=== PATIENT | female | born 1990 | race Caucasian/White ===

== ENCOUNTER 2016-11-19 23:49 | Emergency (ER) | payer OTHER ==
[2016-11-20 00:04] VITALS: TEMP 98
[2016-11-20] MEDS ORDERED: HYDROcodone 10MG/APAP 325MG 1 EA TAB PO ONE (00:28)
--- NOTE | 2016-11-20 00:28 | ED.PDOC ---
History of Present Illness - General Chief Complaint: Lower Extremity Injury Stated Complaint: pain right foot Time Seen by Provider: 11/20/16 00:25 Source: patient, RN notes reviewed, Vital Signs reviewed Exam Limitations: no limitations - History of Present Illness Initial Comments: Patient is a 26 y/o female whose right foot slipped off the last stair and her fott inverted and her body weight went down on it. 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 The pain is severe, sharp, and increases with movement of her foot. Timing/Duration: 1/2 hour Severity: severe Improving Factors: immobilization Worsening Factors: movement Associated Symptoms: denies symptoms Allergies/Adverse Reactions: Allergies Amoxicillin [From Augmentin] Allergy (Severe, Unverified 03/08/13 07:19) Clavulanic Acid [From Augmentin] Allergy (Severe, Unverified 03/08/13 07:19) Home Medications: Ambulatory Orders Clonazepam [Klonopin] 1 mg PO PRN PRN 11/20/16 Divalproex Sodium [Depakote Tab] 250 mg PO DAILY 11/20/16 Escitalopram [Lexapro] 10 mg PO DAILY 11/20/16 HYDROcodone 5MG/APAP 325MG [[place] 5/325] 1 ea PO PRN PRN 11/20/16 Meloxicam [Mobic] 15 mg PO DAILY 11/20/16 Review of Systems - Review of Systems Constitutional: States: no symptoms reported EENTM: States: no symptoms reported Respiratory: States: no symptoms reported Cardiology: States: no symptoms reported Gastrointestinal/Abdominal: States: no symptoms reported Genitourinary: States: no symptoms reported Musculoskeletal: States: back pain, joint pain Skin: States: no symptoms reported Neurological: States: no symptoms reported Endocrine: States: no symptoms reported Hematologic/Lymphatic: States: no symptoms reported All other Systems: Reviewed and Negative Past Medical History (General) - Patient Medical History Hx Seizures: No Hx Stroke: No Hx Dementia: No Hx Asthma: No Hx of COPD: No Hx Cardiac Disorders: No Hx Congestive Heart Failure: No Hx Pacemaker: No Hx Hypertension: No Hx Thyroid Disease: No Hx Diabetes: No Hx Gastroesophageal Reflux: No Hx Renal Disease: No Hx Cancer: No Hx of HIV: No Hx Hepatitis C: No Hx MRSA: No - Vaccination History Hx Tetanus, Diphtheria Vaccination: No Hx Influenza Vaccination: No Hx Pneumococcal Vaccination: No - Social History Hx Tobacco Use: Yes Hx Alcohol Use: No Hx Substance Use: No Hx Substance Use Treatment: No Hx Depression: Yes - Female History Patient is a Female of Child Bearing Age (10 -59 yrs old): Yes Patient : No Family Medical History - Family History Mother Family History: Unknown Physical Exam - Physical Exam General Appearance: Alert, Obvious distress - Mild distress Ears, Nose, Throat: hearing grossly normal Peripheral Pulses: dorsalis pedis,right: 1+ Extremity: swelling - lateral mid-foot, other - evaristo tenderness at tarsal/ metatarsal joint Neurologic: alert, normal mood/affect, oriented x 3 Skin Exam: normal color, warm/dry Progress - Results/Orders Results/Orders: 11/19/16 23:58 Temperature 98.0 F Pulse Rate [ 74 left arm] Respiratory 18 Rate Blood Pressure 113/64 [Right Arm] O2 Sat by Pulse 98 Oximetry - EKG/XRAY/CT XRAY: Right foot Xray Comments: Displaced Maya fracture of proximal 5th metatarsal Departure - Departure Clinical Impression: Fracture of fifth metatarsal bone of right foot Time of Disposition: 00:33 Disposition: Discharge to Home or Self Care Condition: Fair Departure Forms: ED Discharge - Pt. Copy, Patient Portal Self Enrollment Instructions: Foot Fracture, DI for Foot Fracture Diet: resume usual diet Activity: other - No weight-bearing on right foot Referrals: Inocente Damon MD [Primary Care Provider] - 1-2 Weeks Tej Garza MD [Active Staff] - 1-5 Days Home Medications: Ambulatory Orders Clonazepam [Klonopin] 1 mg PO PRN PRN 11/20/16 Divalproex Sodium [Depakote Tab] 250 mg PO DAILY 11/20/16 Escitalopram [Lexapro] 10 mg PO DAILY 11/20/16 HYDROcodone 5MG/APAP 325MG [[place] 5/325] 1 ea PO PRN PRN 11/20/16 Meloxicam [Mobic] 15 mg PO DAILY 11/20/16
[2016-11-20 01:01] VITALS: BP 116/71; O2SAT 99
--- NOTE | 2016-11-20 01:06 | RAD ---
EXAM DESCRIPTION: Foot, right 3 Views CLINICAL HISTORY: 26 years Female pain right foot s/p fall COMPARISON: None. TECHNIQUE: Three views of the right foot. FINDINGS: No acute fractures or dislocations are identified. No osseous destructive lesions. IMPRESSION: [No acute fracture is identified. 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
--- NOTE | 2016-11-20 01:15 | RAD ---
EXAM DESCRIPTION: Foot, right 3 Views CLINICAL HISTORY: 26 years Female pain right foot s/p fall COMPARISON: None. TECHNIQUE: Three views of the right foot. FINDINGS: No acute fractures or dislocations are identified. No osseous destructive lesions. IMPRESSION: [No acute fracture is identified. 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
== END 2016-11-20 01:01 | disposition home or self-care (01) ==
LOC: ER 23:49
DX: S92.351A Displaced fracture of fifth metatarsal bone, right foot, initial encounter for closed fracture (principal); Z88.3 Allergy status to other anti-infective agents; Z87.891 Personal history of nicotine dependence; W10.9XXA Fall (on) (from) unspecified stairs and steps, initial encounter

== ENCOUNTER 2017-02-25 19:37 | Emergency (ER) | payer OTHER ==
[2017-02-25 19:58] VITALS: BP 114/62; O2SAT 96
[2017-02-25] MEDS ORDERED: SULFA/TRIMETH 800/160 (DS) TAB 1 EA TAB PO ONE (20:01)
--- NOTE | 2017-02-25 20:19 | ED.PDOC ---
History of Present Illness - General Chief Complaint: Bite: Animal/Insect/Human Stated Complaint: insect bite Time Seen by Provider: 02/25/17 20:00 Source: patient, RN notes reviewed, Vital Signs reviewed Additional Information: Pt reports bee sting yesterday in left upper arm medial aspect (Pt took picture ) with localized reaction yesterday. Today, swelling and erythema has spread with associated localized numbness and pruritis. No reported fever. - History of Present Illness Timing/Duration: 24 hours Severity: moderate Improving Factors: nothing Worsening Factors: movement Associated Symptoms: denies symptoms - other than occasional numbness and tingling. Allergies/Adverse Reactions: Allergies Amoxicillin [From Augmentin] Allergy (Severe, Unverified 03/08/13 07:19) Clavulanic Acid [From Augmentin] Allergy (Severe, Unverified 03/08/13 07:19) Penicillins Allergy (Verified 02/25/17 19:51) Home Medications: Ambulatory Orders Divalproex Sodium [Depakote Tab] 500 mg PO BID 11/20/16 Escitalopram [Lexapro] 10 mg PO DAILY 11/20/16 Gabapentin 300 mg PO BID 02/25/17 Gabapentin [Neurontin] 600 mg PO BEDTIME 02/25/17 HYDROcodone 10MG/APAP 325MG [[place] 10/325] 1 ea PO Q8HR PRN 02/25/17 Ibuprofen 600 mg PO Q8HR PRN 02/25/17 Methocarbamol [Robaxin] 750 mg PO Q8HR PRN 02/25/17 Sulfa/Trimeth 800/160 (Ds) Tab [Bactrim DS Tab] 1 ea PO BID #14 tab 02/25/17 Review of Systems - Review of Systems Constitutional: States: no symptoms reported EENTM: States: no symptoms reported Respiratory: States: no symptoms reported Cardiology: States: no symptoms reported Gastrointestinal/Abdominal: States: no symptoms reported Genitourinary: States: no symptoms reported Musculoskeletal: States: see HPI Skin: States: see HPI Neurological: States: see HPI, numbness - in areas of inflammation Endocrine: States: no symptoms reported Hematologic/Lymphatic: States: no symptoms reported Past Medical History (General) - Patient Medical History Hx Seizures: No Hx Stroke: No Hx Dementia: No Hx Asthma: Yes Hx of COPD: No Hx Cardiac Disorders: No Hx Congestive Heart Failure: No Hx Pacemaker: No Hx Hypertension: No Hx Thyroid Disease: No Hx Diabetes: No Hx Gastroesophageal Reflux: No Hx Renal Disease: No Hx Cancer: No Hx of HIV: No Hx Hepatitis C: No Hx MRSA: No - Vaccination History Hx Tetanus, Diphtheria Vaccination: No Hx Influenza Vaccination: No Hx Pneumococcal Vaccination: Yes - Social History Hx Tobacco Use: Yes - E-cigarettes Hx Chewing Tobacco Use: No Hx Alcohol Use: No Hx Substance Use: No Hx Substance Use Treatment: No Hx Depression: No Feels Threatened In Home Enviroment: No Feels Threatened In a Relationship: No Hx Physical Abuse: No Hx Emotional Abuse: No Hx Suspected Abuse: No - Female History Patient is a Female of Child Bearing Age (10 -59 yrs old): Yes Patient : No Family Medical History - Family History Mother Family History: Unknown Physical Exam - Physical Exam General Appearance: Alert, Comfortable, No apparent distress - at rest, Well Developed, Well Groomed, Well Hydrated, Well Nourished Eye Exam: bilateral normal Ears, Nose, Throat: hearing grossly normal, normal ENT inspection, normal pharynx Neck: non-tender, full range of motion, supple, normal inspection Respiratory: no respiratory distress, no accessory muscle use Cardiovascular/Chest: normal peripheral pulses, regular rate, rhythm Peripheral Pulses: radial,left: 2+ Gastrointestinal/Abdominal: non tender, soft Back Exam: normal inspection Extremity: normal range of motion, swelling - mild to moderate around site of bee sting 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 No streaking erythema or drainage Progress - Progress Progress: 02/25/17 20:55 Signs and symptoms consistent with localized reaction to bee sting with accompanying early cellulitis. Will discharge to home with Rx for Bactrim and strict return precautions. Departure - Departure Clinical Impression: Left arm cellulitis Time of Disposition: 20:42 Disposition: Discharge to Home or Self Care Condition: Fair Departure Forms: ED Discharge - Pt. Copy, Patient Portal Self Enrollment Instructions: DI for Cellulitis -- Adult, DI for Insect Bites and Stings Referrals: Inocente Damon MD [Primary Care Provider] - 1-2 Weeks Prescriptions: Sulfa/Trimeth 800/160 (Ds) Tab [Bactrim DS Tab] 1 ea PO BID #14 tab Home Medications: Ambulatory Orders Divalproex Sodium [Depakote Tab] 500 mg PO BID 11/20/16 Escitalopram [Lexapro] 10 mg PO DAILY 11/20/16 Gabapentin 300 mg PO BID 02/25/17 Gabapentin [Neurontin] 600 mg PO BEDTIME 02/25/17 HYDROcodone 10MG/APAP 325MG [[place] 10/325] 1 ea PO Q8HR PRN 02/25/17 Ibuprofen 600 mg PO Q8HR PRN 02/25/17 Methocarbamol [Robaxin] 750 mg PO Q8HR PRN 02/25/17 Sulfa/Trimeth 800/160 (Ds) Tab [Bactrim DS Tab] 1 ea PO BID #14 tab 02/25/17 Additional Instructions: Ice to the left arm and elevate at least 3 times a day. Return to ER if condition worsens. Take full 10 day course of antibiotics. I recommend a reassessment in 24 to 48 hours.
[2017-02-25] MEDS ORDERED: SULFA/TRIMETH TAB 800/160 (ER) 1 EA TAB PO SCH (21:00)
== END 2017-02-25 20:38 | disposition home or self-care (01) ==
LOC: ER 19:37
DX: L03.114 Cellulitis of left upper limb (principal); F17.210 Nicotine dependence, cigarettes, uncomplicated; Z88.3 Allergy status to other anti-infective agents; Z88.0 Allergy status to penicillin; Z88.8 Allergy status to other drugs, medicaments and biological substances; Z79.899 Other long term (current) drug therapy

== ENCOUNTER 2017-05-16 10:50 | Emergency (ER) | payer OTHER ==
[2017-05-16 11:16] VITALS: BP 97/62; TEMP 98.8; O2SAT 69
--- NOTE | 2017-05-16 11:36 | ED.PDOC ---
History of Present Illness - General Chief Complaint: ENT Problem Stated Complaint: decreased hearing left ear Time Seen by Provider: 05/16/17 11:21 Source: patient Exam Limitations: no limitations - History of Present Illness Initial Comments: Patient complains of loss of hearing to her left ear for 36 hours. She said it was sudden onset and that the left side of her face felt numb. Symptoms have not worsened but they have not improved either. No previous episodes. She said she had a "silent seizure" when she was about 9 years ago. No other symptoms. Timing/Duration: other - 36 hours Severity: moderate Improving Factors: nothing Worsening Factors: nothing Associated Symptoms: denies symptoms Allergies/Adverse Reactions: Allergies Amoxicillin [From Augmentin] Allergy (Severe, Verified 05/16/17 11:16) Clavulanic Acid [From Augmentin] Allergy (Severe, Verified 05/16/17 11:16) Penicillins Allergy (Verified 05/16/17 11:16) Home Medications: Ambulatory Orders Divalproex Sodium [Depakote Tab] 500 mg PO BID 11/20/16 Escitalopram [Lexapro] 10 mg PO DAILY 11/20/16 Gabapentin 300 mg PO BID 02/25/17 Gabapentin [Neurontin] 600 mg PO BEDTIME 02/25/17 HYDROcodone 10MG/APAP 325MG [[place] 10/325] 1 ea PO Q8HR PRN 02/25/17 Ibuprofen 600 mg PO Q8HR PRN 02/25/17 Methocarbamol [Robaxin] 750 mg PO Q8HR PRN 02/25/17 Sulfa/Trimeth 800/160 (Ds) Tab [Bactrim DS Tab] 1 ea PO BID #14 tab 02/25/17 Review of Systems - Review of Systems Constitutional: States: no symptoms reported EENTM: States: see HPI Respiratory: States: no symptoms reported Cardiology: States: no symptoms reported Gastrointestinal/Abdominal: States: no symptoms reported Genitourinary: States: no symptoms reported Musculoskeletal: States: no symptoms reported Skin: States: no symptoms reported Neurological: States: no symptoms reported Endocrine: States: no symptoms reported Hematologic/Lymphatic: States: no symptoms reported Past Medical History (General) - Patient Medical History Hx Seizures: No Hx Stroke: No Hx Dementia: No Hx Asthma: Yes Hx of COPD: No Hx Cardiac Disorders: No Hx Congestive Heart Failure: No Hx Pacemaker: No Hx Hypertension: No Hx Thyroid Disease: No Hx Diabetes: No Hx Gastroesophageal Reflux: No Hx Renal Disease: No Hx Cancer: No Hx of HIV: No Hx Hepatitis C: No Hx MRSA: No - Vaccination History Hx Tetanus, Diphtheria Vaccination: No Hx Influenza Vaccination: No Hx Pneumococcal Vaccination: Yes - Social History Hx Tobacco Use: Yes - E-cigarettes Hx Chewing Tobacco Use: No Hx Alcohol Use: No Hx Substance Use: No Hx Substance Use Treatment: No Hx Depression: No Hx Physical Abuse: No Hx Emotional Abuse: No Hx Suspected Abuse: No - Activities of Daily Living Hospice Agency (if applicable):: None - Female History Patient is a Female of Child Bearing Age (10 -59 yrs old): Yes Patient : No Family Medical History - Family History Mother Family History: Unknown Physical Exam - Physical Exam General Appearance: Alert Eye Exam: bilateral normal Ears, Nose, Throat: other - TMs clear bilaterally. No cerumen impaction. TMs intact and not bulging. Patient leans the right side of her head towards [facility]. Neck: non-tender, full range of motion, supple Respiratory: lungs clear Cardiovascular/Chest: regular rate, rhythm Neurologic: other - Maldonado test lateralizes to the right ear. Rinne's test shows bone>air conduction on the left but air> bone conduction on the right. Departure - Departure Clinical Impression: Hearing loss in left ear Disposition: Discharge to Home or Self Care Condition: Good Departure Forms: ED Discharge - Pt. Copy, Patient Portal Self Enrollment Diet: regular diet Activity: increase activity as tolerated Referrals: Inocente Damon MD [Primary Care Provider] - 1-2 Weeks Home Medications: Ambulatory Orders Divalproex Sodium [Depakote Tab] 500 mg PO BID 11/20/16 Escitalopram [Lexapro] 10 mg PO DAILY 11/20/16 Gabapentin 300 mg PO BID 02/25/17 Gabapentin [Neurontin] 600 mg PO BEDTIME 02/25/17 HYDROcodone 10MG/APAP 325MG [[place] 10/325] 1 ea PO Q8HR PRN 02/25/17 Ibuprofen 600 mg PO Q8HR PRN 02/25/17 Methocarbamol [Robaxin] 750 mg PO Q8HR PRN 02/25/17 Sulfa/Trimeth 800/160 (Ds) Tab [Bactrim DS Tab] 1 ea PO BID #14 tab 02/25/17 Additional Instructions: Follow up with your primary doctor this week and arrange for an ENT doctor's appointment.
== END 2017-05-16 11:54 | disposition home or self-care (01) ==
LOC: ER 10:50
DX: H91.92 Unspecified hearing loss, left ear (principal); F17.210 Nicotine dependence, cigarettes, uncomplicated; Z88.0 Allergy status to penicillin; Z88.3 Allergy status to other anti-infective agents

== ENCOUNTER 2017-08-14 12:48 | Emergency (ER) | payer SELFPAY ==
[2017-08-14] MEDS ORDERED: ONDANSETRON INJ 4 MG/2 ML VIAL IV ONE (13:28)
[2017-08-14] MEDS ORDERED: SODIUM CHLORIDE 0.9% 1000ML 1,000 ML IVS ONE (13:28)
--- NOTE | 2017-08-14 13:31 | ED.PDOC ---
History of Present Illness - General Chief Complaint: General Stated Complaint: leg & arm pain, diarrhea, nausea & SOB Time Seen by Provider: 08/14/17 12:53 Source: patient, RN notes reviewed, Vital Signs reviewed Exam Limitations: no limitations - History of Present Illness Initial Comments: Patient comes to ER with numerous complaints. Reports her legs started hurting ( burning) last night. Started with diarrhea about 3am. Now c/o arms also hurting , stomach burning and nausea. + chills. No fever. Timing/Duration: 24 hours Severity: moderate Improving Factors: nothing Worsening Factors: nothing Associated Symptoms: fever/chills, malaise, nausea/vomiting, shortness of breath , other - myalgia Allergies/Adverse Reactions: Allergies Amoxicillin [From Augmentin] Allergy (Severe, Verified 05/16/17 11:16) Clavulanic Acid [From Augmentin] Allergy (Severe, Verified 05/16/17 11:16) Penicillins Allergy (Verified 05/16/17 11:16) Pseudoephedrine [From Sudafed] Allergy (Verified 08/14/17 14:01) Quetiapine [From Seroquel] Allergy (Verified 08/14/17 14:01) Home Medications: Ambulatory Orders Divalproex Sodium [Depakote Tab] 500 mg PO BID 11/20/16 Escitalopram [Lexapro] 10 mg PO DAILY 11/20/16 Gabapentin 300 mg PO BID 02/25/17 Gabapentin [Neurontin] 600 mg PO BEDTIME 02/25/17 HYDROcodone 10MG/APAP 325MG [[place] 10/325] 1 ea PO Q8HR PRN 02/25/17 Ibuprofen 600 mg PO Q8HR PRN 02/25/17 Methocarbamol [Robaxin] 750 mg PO Q8HR PRN 02/25/17 Sulfa/Trimeth 800/160 (Ds) Tab [Bactrim DS Tab] 1 ea PO BID #14 tab 02/25/17 Ondansetron [Zofran Odt] 4 mg PO Q6HR PRN #15 tab 08/14/17 Review of Systems - Review of Systems Constitutional: States: chills, malaise. Denies: fever EENTM: States: no symptoms reported Respiratory: States: short of breath. Denies: cough Cardiology: States: no symptoms reported Gastrointestinal/Abdominal: States: see HPI, diarrhea, nausea. Denies: vomiting Genitourinary: States: no symptoms reported Musculoskeletal: States: see HPI, muscle pain Skin: States: no symptoms reported Neurological: States: headache All other Systems: No Change from Baseline Past Medical History (General) - Patient Medical History Hx Seizures: No Hx Stroke: No Hx Dementia: No Hx Asthma: Yes Hx of COPD: No Hx Cardiac Disorders: No Hx Congestive Heart Failure: No Hx Pacemaker: No Hx Hypertension: No Hx Thyroid Disease: No Hx Diabetes: No Hx Gastroesophageal Reflux: No Hx Renal Disease: No Hx Cancer: No Hx of HIV: No Hx Hepatitis C: No Hx MRSA: No - Vaccination History Hx Tetanus, Diphtheria Vaccination: No Hx Influenza Vaccination: No Hx Pneumococcal Vaccination: Yes - Social History Hx Tobacco Use: Yes - E-cigarettes Hx Chewing Tobacco Use: No Hx Alcohol Use: No Hx Substance Use: No Hx Substance Use Treatment: No Hx Depression: No Hx Physical Abuse: No Hx Emotional Abuse: No Hx Suspected Abuse: No - Female History Patient : No Family Medical History - Family History Mother Family History: Unknown Physical Exam - Physical Exam General Appearance: Alert, No apparent distress, Ill Appearing, Well Developed, Well Groomed, Well Hydrated, Well Nourished Ears, Nose, Throat: hearing grossly normal Neck: non-tender, full range of motion, supple, normal inspection Respiratory: lungs clear, normal breath sounds, no respiratory distress, no accessory muscle use Cardiovascular/Chest: normal peripheral pulses, regular rate, rhythm, no gallop , no murmur Peripheral Pulses: radial,right: 2+, radial,left: 2+ Gastrointestinal/Abdominal: normal bowel sounds, soft, no organomegaly, no pulsatile mass, tenderness - Mild LUQ tenderness w/o guarding or rebound Extremity: normal inspection Neurologic: alert, normal mood/affect, oriented x 3 Skin Exam: normal color, warm/dry Comments: Vital Signs 08/14/17 08/14/17 12:52 14:08 Temperature 98.2 F Pulse Rate [ 75 64 left brachial] Respiratory 16 16 Rate Blood Pressure 96/77 98/67 [left brachial] O2 Sat by Pulse 95 96 Oximetry Progress - Progress Progress: 08/14/17 14:51 Patient is doing better after Zofran and fluids. Labs are benign Will d/c home with Rx for Zofran - Results/Orders Results/Orders: Laboratory Tests 08/14/17 08/14/17 08/14/17 13:53 13:53 13:53 WBC 5.6 RBC 4.41 Hgb 13.2 Hct 39.2 MCV 88.9 MCH 29.9 MCHC 33.8 RDW 12.7 Plt Count 289 MPV 8.6 Absolute Neuts (auto) 3.30 Absolute Lymphs (auto) 1.60 Absolute Monos (auto) 0.40 Absolute Eos (auto) 0.20 Absolute Basos (auto) 0.10 Neutrophils % 58.8 Lymphocytes % 29.4 Monocytes % 7.2 Eosinophils % 3.6 Basophils % 1.0 Sodium 137 Potassium 3.5 L Chloride 103 Carbon Dioxide 27 Anion Gap 10.5 L BUN 16 Creatinine 0.60 BUN/Creatinine Ratio 26.7 H Random Glucose 75 Serum Osmolality 273.7 L Calcium 9.8 Total Bilirubin 0.5 AST 34 ALT 44 Alkaline Phosphatase 57 Serum Total Protein 8.1 Albumin 4.5 Globulin 3.6 H Albumin/Globulin Ratio 1.3 Urine Color Yellow Urine Appearance Clear Urine pH 6.0 Ur Specific [place] 1.025 Urine Protein Negative Urine Glucose (UA) Negative Urine Ketones Negative Urine Blood Negative Urine Nitrite Negative Urine Bilirubin Negative Urine Urobilinogen 0.2 Ur Leukocyte Esterase Trace H Urine RBC 0 Urine WBC 3-5 H Ur Epithelial Cells 10-20 Urine Bacteria 0 Departure - Departure Clinical Impression: Gastroenteritis and colitis, viral Time of Disposition: 14:52 Disposition: Discharge to Home or Self Care Condition: Good Departure Forms: ED Discharge - Pt. Copy, Patient Portal Self Enrollment, Work Release Form Instructions: DI for Viral Gastroenteritis -- Adult Diet: resume usual diet Activity: increase activity as tolerated Referrals: Inocente Damon MD [Primary Care Provider] - 1-2 Weeks Prescriptions: Ondansetron [Zofran Odt] 4 mg PO Q6HR PRN #15 tab PRN Reason: Nausea/Vomiting Home Medications: Ambulatory Orders Divalproex Sodium [Depakote Tab] 500 mg PO BID 11/20/16 Escitalopram [Lexapro] 10 mg PO DAILY 11/20/16 Gabapentin 300 mg PO BID 02/25/17 Gabapentin [Neurontin] 600 mg PO BEDTIME 02/25/17 HYDROcodone 10MG/APAP 325MG [[place] 10/325] 1 ea PO Q8HR PRN 02/25/17 Ibuprofen 600 mg PO Q8HR PRN 02/25/17 Methocarbamol [Robaxin] 750 mg PO Q8HR PRN 02/25/17 Sulfa/Trimeth 800/160 (Ds) Tab [Bactrim DS Tab] 1 ea PO BID #14 tab 02/25/17 Ondansetron [Zofran Odt] 4 mg PO Q6HR PRN #15 tab 08/14/17
[2017-08-14 14:00] VITALS: TEMP 98.2
[2017-08-14 14:09] VITALS: O2SAT 96
[2017-08-14 15:16] VITALS: BP 93/53
== END 2017-08-14 15:16 | disposition home or self-care (01) ==
LOC: ER 12:48
DX: A08.4 Viral intestinal infection, unspecified (principal); F17.210 Nicotine dependence, cigarettes, uncomplicated; J45.909 Unspecified asthma, uncomplicated; Z79.899 Other long term (current) drug therapy; Z88.0 Allergy status to penicillin; Z88.8 Allergy status to other drugs, medicaments and biological substances
CPT/HCPCS: 36415; 80053; 81001; 85025; J2405; J7030

== ENCOUNTER 2018-02-18 21:51 | Emergency (ER) | payer OTHER ==
[2018-02-18 22:12] VITALS: O2SAT 97
[2018-02-18] MEDS ORDERED: KETOROLAC TROMETHAMINE INJ 60 MG/2 ML VIAL IM ONE (22:14)
--- NOTE | 2018-02-18 22:17 | ED.PDOC ---
History of Present Illness - General Chief Complaint: Lower Extremity Injury Stated Complaint: rt thigh pain Time Seen by Provider: 02/18/18 22:14 Source: patient Exam Limitations: no limitations - History of Present Illness Initial Comments: patient comes in today for right quadricep pain. Patient was walking at the leg stepped on a wet rock and had her leg slipped out from beneath her. She spread her legs but did not actually fall but felt a sudden pull and severe pain to the right quadricep. She was able to ambulate afterwards and had no other injury sustained. However, she states the pain is severe and she just is having sharp shooting pains in that muscle. She has not had injury to this area before. Occurred: this afternoon Pain - Lower Extremity: severe: Right Thigh/Hip Method of Injury: twisted Improving Factors: nothing Worsening Factors: movement Allergies/Adverse Reactions: Allergies Amoxicillin [From Augmentin] Allergy (Severe, Verified 05/16/17 11:16) Clavulanic Acid [From Augmentin] Allergy (Severe, Verified 05/16/17 11:16) Penicillins Allergy (Verified 05/16/17 11:16) Pseudoephedrine [From Sudafed] Allergy (Verified 08/14/17 14:01) Quetiapine [From Seroquel] Allergy (Verified 08/14/17 14:01) Home Medications: Ambulatory Orders Divalproex Sodium [Depakote Tab] 500 mg PO BID 11/20/16 Escitalopram [Lexapro] 20 mg PO DAILY 11/20/16 Gabapentin [Neurontin] 600 mg PO TID 02/25/17 HYDROcodone 10MG/APAP 325MG [[place] 10/325] 1 ea PO Q8HR PRN 02/25/17 Carisoprodol [Soma] 350 mg PO Q8H 08/14/17 Ibuprofen 800 mg PO TID 3 Days #10 tab 02/18/18 Review of Systems - Review of Systems Constitutional: Denies: chills, fever EENTM: States: no symptoms reported Respiratory: States: no symptoms reported Cardiology: States: no symptoms reported Gastrointestinal/Abdominal: States: no symptoms reported Genitourinary: States: no symptoms reported Past Medical History (General) - Patient Medical History Hx Seizures: No Hx Stroke: No Hx Dementia: No Hx Asthma: Yes Hx of COPD: No Hx Cardiac Disorders: No Hx Congestive Heart Failure: No Hx Pacemaker: No Hx Hypertension: No Hx Thyroid Disease: No Hx Diabetes: No Hx Gastroesophageal Reflux: No Hx Renal Disease: No Hx Cancer: No Hx of HIV: No Hx Hepatitis C: No Hx MRSA: No - Vaccination History Hx Tetanus, Diphtheria Vaccination: No Hx Influenza Vaccination: No Hx Pneumococcal Vaccination: Yes - Social History Hx Tobacco Use: Yes - E-cigarettes Hx Chewing Tobacco Use: No Hx Alcohol Use: No Hx Substance Use: No Hx Substance Use Treatment: No Hx Depression: No Hx Physical Abuse: No Hx Emotional Abuse: No Hx Suspected Abuse: No - Female History Patient is a Female of Child Bearing Age (10 -59 yrs old): Yes Patient : No Family Medical History - Family History Mother Family History: Unknown Physical Exam - Physical Exam General Appearance: Anxious Eyes, Ears, Nose, Throat: PERRL/EOMI Cardiovascular/Respiratory: regular rate, rhythm, no M/R/G, normal peripheral pulses, no JVD, normal breath sounds, no respiratory distress Gastrointestinal/Abdominal: non-tender Thigh/Hip: normal inspection, other - patient has tears to palpation to the middle portion of the quadricep with some soft tissue tenderness and swelling without erythema or gross deformities. Her knee is midline and there is no tears or palpations in the lower extremity or foot. She does have motor is 5 over 5 normal DTRs normal sensation and good distal pulse. Progress - Progress Progress: 02/18/18 22:18 patient appears to have suffered a quadricep strain or partial tear. There is no gross deformities and odor is intact. [place] bandage over the area with an ice pack and Toradol shot given. Ibuprofen 800 mg by mouth twice a day for the next 3 days prescribed and slowly ambulate as able. Follow up on Monday with her PCP in clinic. Departure - Departure Clinical Impression: Quadriceps strain Qualifiers: Encounter type: initial encounter Laterality: right Qualified Code(s): S76.111A - Strain of right quadriceps muscle, fascia and tendon, initial encounter Disposition: Discharge to Home or Self Care Condition: Fair Departure Forms: ED Discharge - Pt. Copy, Patient Portal Self Enrollment Diet: regular diet Activity: increase activity as tolerated Referrals: Inocente Damon MD [Primary Care Provider] - 1-2 Weeks Home Medications: Ambulatory Orders Divalproex Sodium [Depakote Tab] 500 mg PO BID 11/20/16 Escitalopram [Lexapro] 20 mg PO DAILY 11/20/16 Gabapentin [Neurontin] 600 mg PO TID 02/25/17 HYDROcodone 10MG/APAP 325MG [[place] ] 1 ea PO Q8HR PRN 02/25/17 Carisoprodol [Soma] 350 mg PO Q8H 08/14/17 Ibuprofen 800 mg PO TID 3 Days #10 tab 02/18/18 Additional Instructions: rest and ice to the area over the next couple of days. Follow-up in the clinic on she states her reexamined. Ibuprofen 800 mg 3 times a day until follow-up with PCP.
[2018-02-18 23:01] VITALS: BP 102/64; TEMP 98.2
== END 2018-02-18 23:01 | disposition home or self-care (01) ==
LOC: ER 21:51
DX: S76.111A Strain of right quadriceps muscle, fascia and tendon, initial encounter (principal); J45.909 Unspecified asthma, uncomplicated; F17.290 Nicotine dependence, other tobacco product, uncomplicated; W18.41XA Slipping, tripping and stumbling without falling due to stepping on object, initial encounter; Y92.828 Other wilderness area as the place of occurrence of the external cause

== ENCOUNTER 2018-02-22 22:37 | Emergency (ER) | payer OTHER ==
--- NOTE | 2018-02-22 23:43 | ED.PDOC ---
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 Cough Quality/Degree: dry cough Improving Factors: nothing Worsening Factors: nothing Associated Symptoms: shortness of breath Allergies/Adverse Reactions: Allergies Amoxicillin [From Augmentin] Allergy (Severe, Verified 02/22/18 23:22) Clavulanic Acid [From Augmentin] Allergy (Severe, Verified 02/22/18 23:22) Penicillins Allergy (Verified 02/22/18 23:22) Pseudoephedrine [From Sudafed] Allergy (Verified 02/22/18 23:22) Quetiapine [From Seroquel] Allergy (Verified 02/22/18 23:22) Home Medications: Ambulatory Orders Divalproex Sodium [Depakote Tab] 500 mg PO BID MDD 1000 11/20/16 Escitalopram [Lexapro] 20 mg PO DAILY 11/20/16 Gabapentin [Neurontin] 600 mg PO TID 02/25/17 HYDROcodone 10MG/APAP 325MG [[place] 10/325] 1 ea PO Q8HR PRN 02/25/17 Carisoprodol [Soma] 350 mg PO Q8H 08/14/17 Ibuprofen 800 mg PO TID 02/22/18 Albuterol Inhaler [Ventolin Hfa Inhaler] 2 puff INH Q4HR PRN #1 inh 02/23/18 Benzonatate Perles [Tessalon Perles] 100 mg PO TID PRN #15 cap 02/23/18 Prednisone 10 mg PO DAILY #5 prisca 02/23/18 Review of Systems - Review of Systems Constitutional: Denies: chills, fever EENTM: States: no symptoms reported Respiratory: States: 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, 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 of 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, 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 Cardiology: Denies: chest pain, palpitations Gastrointestinal/Abdominal: States: no symptoms reported Genitourinary: States: no symptoms reported Musculoskeletal: Denies: back pain, neck pain Skin: States: no symptoms reported Neurological: States: no symptoms reported Endocrine: States: no symptoms reported Hematologic/Lymphatic: States: no symptoms reported Past Medical History (General) - Patient Medical History Hx Seizures: No Hx Stroke: No Hx Dementia: No Hx Asthma: Yes Hx of COPD: No Hx Cardiac Disorders: No Hx Congestive Heart Failure: No Hx Pacemaker: No Hx Hypertension: No Hx Thyroid Disease: No Hx Diabetes: No Hx Gastroesophageal Reflux: Yes Hx Renal Disease: No Hx Cancer: No Hx of HIV: No Hx Hepatitis C: No Hx MRSA: No Surgical History: other - Vaccination History Hx Tetanus, Diphtheria Vaccination: No Hx Influenza Vaccination: No Hx Pneumococcal Vaccination: No Immunizations Up to Date: No - Social History Hx Tobacco Use: Yes Years Tobacco Use: 13 Cigarettes Packs Per Day: 6 Hx Chewing Tobacco Use: No Hx Alcohol Use: No Hx Substance Use: No Hx Substance Use Treatment: No Hx Depression: Yes - Bi-Polar Feels Threatened In Home Enviroment: No Feels Threatened In a Relationship: No Hx Physical Abuse: No Hx Emotional Abuse: No Hx Suspected Abuse: No - Activities of Daily Living Hospice Agency (if applicable):: None - Female History Patient is a Female of Child Bearing Age (10 -59 yrs old): Yes Hx Last Menstrual Period: 02/22/18 Patient : No Family Medical History - Family History Mother Family History: Unknown Physical Exam - Physical Exam General Appearance: Alert, No apparent distress Eye Exam: bilateral normal ENT Exam: normal ENT inspection, hearing grossly normal, TMs normal, pharynx normal Neck: non-tender, full range of motion, supple Respiratory: lungs clear, normal breath sounds, no respiratory distress Cardiovascular/Chest: regular rate, rhythm, no murmur Gastrointestinal/Abdominal: normal bowel sounds, non tender, soft, no organomegaly Extremity: normal range of motion, non-tender Neurologic: alert, normal mood/affect Skin Exam: normal color, warm/dry Lymphatic: no adenopathy Progress - EKG/XRAY/CT XRAY: chest - ESSENCE Departure - Departure Clinical Impression: Bronchitis Time of Disposition: 00:10 Disposition: Discharge to Home or Self Care Condition: Good Departure Forms: ED Discharge - Pt. Copy, Patient Portal Self Enrollment Instructions: Acute Bronchitis Referrals: Inocente Damon MD [Primary Care Provider] - 1-2 Weeks Prescriptions: Albuterol Inhaler [Ventolin Hfa Inhaler] 2 puff INH Q4HR PRN #1 inh PRN Reason: Shortness Of Breath Benzonatate Perles [Tessalon Perles] 100 mg PO TID PRN #15 cap PRN Reason: Cough Prednisone 10 mg PO DAILY #5 prisca Home Medications: Ambulatory Orders Divalproex Sodium [Depakote Tab] 500 mg PO BID MDD 1000 11/20/16 Escitalopram [Lexapro] 20 mg PO DAILY 11/20/16 Gabapentin [Neurontin] 600 mg PO TID 02/25/17 HYDROcodone 10MG/APAP 325MG [[place] 10/325] 1 ea PO Q8HR PRN 02/25/17 Carisoprodol [Soma] 350 mg PO Q8H 08/14/17 Ibuprofen 800 mg PO TID 02/22/18 Albuterol Inhaler [Ventolin Hfa Inhaler] 2 puff INH Q4HR PRN #1 inh 02/23/18 Benzonatate Perles [Tessalon Perles] 100 mg PO TID PRN #15 cap 02/23/18 Prednisone 10 mg PO DAILY #5 prisca 02/23/18
--- NOTE | 2018-02-23 00:02 | RAD ---
EXAM: PA and LATERAL CHEST RADIOGRAPHS CLINICAL INDICATION: Cough. Shortness of breath. COMPARISON: No comparison chest radiographs are currently available. FINDINGS: Cardiac size and pulmonary vasculature are normal. Lungs are clear. No pleural effusions or pneumothorax. No free peritoneal gas layering under the hemidiaphragms. No suspicious hilar or mediastinal lymphadenopathy. Bones are intact on these two views. IMPRESSION: Normal chest radiographs. Electronically signed by: Escobar Fairbanks MD 02/23/2018 12:01 AM CDT
[2018-02-23 00:42] VITALS: BP 98/63; TEMP 98.8; O2SAT 98
== END 2018-02-23 00:42 | disposition home or self-care (01) ==
LOC: ER 22:37
DX: J40 Bronchitis, not specified as acute or chronic (principal); K21.9 Gastro-esophageal reflux disease without esophagitis; J45.909 Unspecified asthma, uncomplicated; Z87.891 Personal history of nicotine dependence

== ENCOUNTER 2018-02-24 22:35 | Emergency (ER) | payer OTHER ==
[2018-02-24] MEDS ORDERED: predniSONE 20 MG TAB PO ONE (22:52)
[2018-02-24] MEDS ORDERED: AZITHROMYCIN 250 MG TAB PO ONE (22:52)
[2018-02-24] MEDS ORDERED: IPRATROPIUM/ALBUTEROL 3 ML VIAL NEB ONE (22:52)
[2018-02-24] MEDS ORDERED: IBUPROFEN 200 MG TAB PO ONE (22:53)
[2018-02-24] MEDS ORDERED: CETIRIZINE HCL 10 MG TAB PO ONE (22:58)
[2018-02-24] MEDS ORDERED: ONDANSETRON ODT 8 MG TAB SL ONE (23:06)
--- NOTE | 2018-02-24 23:49 | ED.PDOC ---
History of Present Illness - General Chief Complaint: Respiratory Problem Stated Complaint: cough and chest congestion Time Seen by Provider: 02/24/18 22:47 Source: patient Exam Limitations: no limitations - History of Present Illness Initial Comments: the patient is a 27-year-old female presenting after about 5 days of symptoms of cough congestion and some sore throat. She was seen here about 2 or 3 days ago and was started on some Ceftin along with a inhaler and some low- dose prednisone. She has been taking these but feels like she is not getting any better. She does have some scattered wheezes and rhonchi on exam. She is oxygenating well and in no acute distress but she does have a very frequent cough that is disturbing to her. No chest pain. No syncope or near syncope. Occasionally she does cough until she throws up No nausea before. Timing/Duration: unsure Severity: moderate Improving Factors: nothing Worsening Factors: nothing Associated Symptoms: cough, malaise Allergies/Adverse Reactions: Allergies Amoxicillin [From Augmentin] Allergy (Severe, Verified 02/22/18 23:22) Clavulanic Acid [From Augmentin] Allergy (Severe, Verified 02/22/18 23:22) Penicillins Allergy (Verified 02/22/18 23:22) Pseudoephedrine [From Sudafed] Allergy (Verified 02/22/18 23:22) Quetiapine [From Seroquel] Allergy (Verified 02/22/18 23:22) Home Medications: Ambulatory Orders Divalproex Sodium [Depakote Tab] 500 mg PO BID MDD 1000 11/20/16 Escitalopram [Lexapro] 20 mg PO DAILY 11/20/16 Gabapentin [Neurontin] 600 mg PO TID 02/25/17 HYDROcodone 10MG/APAP 325MG [[place] 10/325] 1 ea PO Q8HR PRN 02/25/17 Carisoprodol [Soma] 350 mg PO Q8H 08/14/17 Ibuprofen 800 mg PO TID 02/22/18 Albuterol Inhaler [Ventolin Hfa Inhaler] 2 puff INH Q4HR PRN #1 inh 02/23/18 Benzonatate Perles [Tessalon Perles] 100 mg PO TID PRN #15 cap 02/23/18 Cefuroxime Axetil [Ceftin] 500 mg PO Q12H #20 tablet 02/23/18 Prednisone 10 mg PO DAILY #5 prisca 02/23/18 Azithromycin 500 mg PO DAILY #4 tab 02/24/18 Review of Systems - Review of Systems Constitutional: States: no symptoms reported EENTM: States: no symptoms reported Respiratory: States: cough Cardiology: States: no symptoms reported Gastrointestinal/Abdominal: States: no symptoms reported Genitourinary: States: no symptoms reported Musculoskeletal: States: no symptoms reported Skin: States: no symptoms reported Neurological: States: no symptoms reported Endocrine: States: no symptoms reported All other Systems: No Change from Baseline Past Medical History (General) - Patient Medical History Hx Seizures: Yes Hx Stroke: No Hx Dementia: No Hx Asthma: Yes Hx of COPD: No Hx Cardiac Disorders: No Hx Congestive Heart Failure: No Hx Pacemaker: No Hx Hypertension: No Hx Thyroid Disease: No Hx Diabetes: No Hx Gastroesophageal Reflux: Yes Hx Renal Disease: No Hx Cancer: No Hx of HIV: No Hx Hepatitis C: No Hx MRSA: No Surgical History: noncontributory - Vaccination History Hx Tetanus, Diphtheria Vaccination: No Hx Influenza Vaccination: No Hx Pneumococcal Vaccination: No Immunizations Up to Date: No - Social History Hx Tobacco Use: No Hx Chewing Tobacco Use: No Hx Alcohol Use: No Hx Substance Use: No Hx Substance Use Treatment: No Hx Depression: No Feels Threatened In Home Enviroment: No Feels Threatened In a Relationship: No Hx Physical Abuse: No Hx Emotional Abuse: No Hx Suspected Abuse: No - Activities of Daily Living Hospice Agency (if applicable):: None - Female History Patient is a Female of Child Bearing Age (10 -59 yrs old): Yes Hx Last Menstrual Period: 02/22/18 Patient : No Family Medical History - Family History Mother Family History: Unknown Physical Exam - Physical Exam General Appearance: Alert, Comfortable, No apparent distress Eye Exam: bilateral normal Ears, Nose, Throat: hearing grossly normal, nasal congestion, pharyngeal erythema Neck: full range of motion, supple Respiratory: no respiratory distress, no accessory muscle use, rhonchi, wheezing - mild Cardiovascular/Chest: normal peripheral pulses, regular rate, rhythm, no edema Peripheral Pulses: radial,right: 2+, radial,left: 2+, dorsalis pedis,right: 2+, dorsalis pedis,left: 2+ Gastrointestinal/Abdominal: non tender, soft Rectal Exam: deferred Back Exam: normal inspection, no CVA tenderness Extremity: normal range of motion, non-tender, normal inspection, no pedal edema 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 The patient was given a breathing treatment as well as dose of steroid and some Zyrtec here. She is also going to be started on azithromycin to cover for atypical bacterial pathogens. She'll be written for 5 days of oral azithromycin. She needs to continue her oral prednisone that was already written for her as well as the inhaler. She can additionally use one Zyrtec twice daily for the next couple of days to help reduce mucus production. The patient is oxygenating well and in no respiratory distress. a humidifier may also help. I do expect that her symptoms will start to improve significantly over the next 24-48 hours. She does need to keep herself well hydrated. she can follow up with her primary care doctor later this week. ER warnings were given for any worsening. - Results/Orders Results/Orders: chest x-ray shows no evidence of any lobar pneumonia. Departure - Departure Clinical Impression: Acute bronchitis Qualifiers: Bronchitis organism: unspecified organism Qualified Code(s): J20.9 - Acute bronchitis, unspecified Disposition: Discharge to Home or Self Care Condition: Fair Departure Forms: ED Discharge - Pt. Copy, Patient Portal Self Enrollment Instructions: DI for Acute Bronchitis Diet: regular diet Activity: increase activity as tolerated Referrals: Inocente Damon MD [Primary Care Provider] - 1-2 Weeks Prescriptions: Azithromycin 500 mg PO DAILY #4 tab Home Medications: Ambulatory Orders Divalproex Sodium [Depakote Tab] 500 mg PO BID MDD 1000 11/20/16 Escitalopram [Lexapro] 20 mg PO DAILY 11/20/16 Gabapentin [Neurontin] 600 mg PO TID 02/25/17 HYDROcodone 10MG/APAP 325MG [[place] 10/325] 1 ea PO Q8HR PRN 02/25/17 Carisoprodol [Soma] 350 mg PO Q8H 08/14/17 Ibuprofen 800 mg PO TID 02/22/18 Albuterol Inhaler [Ventolin Hfa Inhaler] 2 puff INH Q4HR PRN #1 inh 02/23/18 Benzonatate Perles [Tessalon Perles] 100 mg PO TID PRN #15 cap 02/23/18 Cefuroxime Axetil [Ceftin] 500 mg PO Q12H #20 tablet 02/23/18 Prednisone 10 mg PO DAILY #5 prisca 02/23/18 Azithromycin 500 mg PO DAILY #4 tab 02/24/18 Additional Instructions: the patient is a 27-year-old female presenting to the emergency room secondary to worsening symptoms of bronchitis. The patient was given a breathing treatment as well as dose of steroid and some Zyrtec here. She is also going to be started on azithromycin to cover for atypical bacterial pathogens. She'll be written for 5 days of oral azithromycin. She needs to continue her oral prednisone that was already written for her as well as the inhaler. She can additionally use one Zyrtec twice daily for the next couple of days to help reduce mucus production. The patient is oxygenating well and in no respiratory distress. a humidifier may also help. I do expect that her symptoms will start to improve significantly over the next 24-48 hours. She does need to keep herself well hydrated. she can follow up with her primary care doctor later this week. ER warnings were given for any worsening.
--- NOTE | 2018-02-24 23:54 | RAD ---
EXAM: PA and LATERAL CHEST RADIOGRAPHS CLINICAL INDICATION: Cough and shortness of breath. COMPARISON: None currently available. FINDINGS: Cardiac size and pulmonary vasculature are normal. Lungs are clear. No pleural effusions or pneumothorax. No free peritoneal gas layering under the hemidiaphragms. No suspicious hilar or mediastinal lymphadenopathy. Bones are intact on these two views. IMPRESSION: Normal chest radiographs. Electronically signed by: Escobar Fairbanks MD 02/24/2018 11:53 PM CDT
[2018-02-25 00:40] VITALS: O2SAT 97
[2018-02-25 00:41] VITALS: BP 90/68; TEMP 97.8
== END 2018-02-25 00:50 | disposition home or self-care (01) ==
LOC: ER 22:35
DX: J20.9 Acute bronchitis, unspecified (principal); J45.909 Unspecified asthma, uncomplicated; Z79.899 Other long term (current) drug therapy
CPT/HCPCS: 71046; 94640; J7512; J7620; Q0144

== ENCOUNTER 2019-03-10 17:10 | Emergency (ER) | payer SELFPAY ==
[2019-03-10 17:24] VITALS: TEMP 97.7
[2019-03-10] MEDS ORDERED: KETOROLAC TROMETHAMINE INJ 30 MG/ML VIAL IV ONE (17:51)
[2019-03-10] MEDS ORDERED: SODIUM CHLORIDE 0.9% 50ML 50 ML ONE (17:53)
[2019-03-10] MEDS ORDERED: PROMETHAZINE HCL INJ 25 MG/ML VIAL ONE (17:53)
[2019-03-10] MEDS: PROMETHAZINE HCL INJ 25 MG in SODIUM CHLORIDE 0.9% 50ML 50 ML IVPB ONE ×2 (17:56→18:13)
--- NOTE | 2019-03-10 17:57 | ED.PDOC ---
History of Present Illness - General Chief Complaint: General Stated Complaint: n/v,chest discomfort Time Seen by Provider: 03/10/19 17:22 Source: patient Exam Limitations: no limitations - History of Present Illness Initial Comments: Patient presents after developing a headache and N/V at work about 90 minutes [employer]. She has had episodes like this before as she has a history of migraines. She also has had a sore throat since this morning and a dry cough. She does smoke cigarettes but says the cough has only been going on for today. She has also been having "dry heaving" since the initial vomiting episode. The headache is typical for her migraines. She had mild abdominal pain earlier before she vomited but that has resolved. No other complaints. Denies any similarly sick contacts. Timing/Duration: 1-3 hours Severity: moderate Improving Factors: nothing Worsening Factors: nothing Associated Symptoms: other - see HPI Allergies/Adverse Reactions: Allergies Amoxicillin [From Augmentin] Allergy (Severe, Verified 02/22/18 23:22) Clavulanic Acid [From Augmentin] Allergy (Severe, Verified 02/22/18 23:22) Penicillins Allergy (Verified 02/22/18 23:22) Pseudoephedrine [From Sudafed] Allergy (Verified 02/22/18 23:22) Quetiapine [From Seroquel] Allergy (Verified 02/22/18 23:22) Home Medications: Ambulatory Orders Divalproex Sodium [Depakote Tab] 500 mg PO BID MDD 1000 11/20/16 Escitalopram [Lexapro] 20 mg PO DAILY 11/20/16 Gabapentin [Neurontin] 800 mg PO TID 02/25/17 Albuterol Inhaler [Ventolin Hfa Inhaler] 2 puff INH Q4HR PRN #1 inh 02/23/18 Benzonatate Perles [Tessalon Perles] 100 mg PO TID PRN #15 cap 02/23/18 Ketorolac Tromethamine [Toradol Tabs] 10 mg PO Q6HRS PRN #10 tab 03/10/19 Promethazine Tab [Phenergan Tablet] 25 mg PO .Q4H PRN #14 tab 03/10/19 Review of Systems - Review of Systems Constitutional: States: no symptoms reported EENTM: States: no symptoms reported Respiratory: States: see HPI Cardiology: States: no symptoms reported Gastrointestinal/Abdominal: States: see HPI Genitourinary: States: no symptoms reported Musculoskeletal: States: no symptoms reported Skin: States: no symptoms reported Neurological: States: no symptoms reported Endocrine: States: no symptoms reported Hematologic/Lymphatic: States: no symptoms reported Past Medical History (General) - Patient Medical History Hx Seizures: Yes Hx Stroke: No Hx Dementia: No Hx Asthma: Yes Hx of COPD: No Hx Cardiac Disorders: No Hx Congestive Heart Failure: No Hx Pacemaker: No Hx Hypertension: No Hx Thyroid Disease: No Hx Diabetes: No Hx Gastroesophageal Reflux: Yes Hx Renal Disease: No Hx Cancer: No Hx of HIV: No Hx Hepatitis C: No Hx MRSA: No - Vaccination History Hx Tetanus, Diphtheria Vaccination: No Hx Influenza Vaccination: Yes Hx Pneumococcal Vaccination: No - Social History Hx Tobacco Use: Yes Hx Chewing Tobacco Use: No Hx Alcohol Use: No Hx Substance Use: No Hx Substance Use Treatment: No Hx Depression: No Hx Physical Abuse: No Hx Emotional Abuse: No Hx Suspected Abuse: No - Female History Patient is a Female of Child Bearing Age (10 -59 yrs old): Yes Hx Last Menstrual Period: 02/22/18 Patient : No Family Medical History - Family History Mother Family History: Unknown Physical Exam - Physical Exam General Appearance: Alert Eye Exam: bilateral normal Ears, Nose, Throat: normal ENT inspection Neck: non-tender, full range of motion, supple Respiratory: lungs clear, normal breath sounds Cardiovascular/Chest: normal peripheral pulses, regular rate, rhythm, no edema Gastrointestinal/Abdominal: normal bowel sounds, non tender, soft Back Exam: normal inspection, no CVA tenderness Neurologic: no motor/sensory deficits, alert, normal mood/affect, oriented x 3 Skin Exam: normal color Lymphatic: no adenopathy Progress - Progress Progress: 03/10/19 18:56 Laboratory Tests 03/10/19 03/10/19 03/10/19 17:56 17:56 18:05 WBC 8.2 RBC 4.76 Hgb 14.4 Hct 43.1 MCV 90.5 MCH 30.2 MCHC 33.4 RDW 12.9 Plt Count 309 MPV 8.8 Absolute Neuts (auto) 6.20 Absolute Lymphs (auto) 1.20 Absolute Monos (auto) 0.50 Absolute Eos (auto) 0.20 Absolute Basos (auto) 0.00 Neutrophils % 76.4 Lymphocytes % 15.0 L Monocytes % 6.0 Eosinophils % 2.2 Basophils % 0.4 Sodium 136 Potassium 4.3 Chloride 100 L Carbon Dioxide 26 Anion Gap 14.3 BUN 12 Creatinine 0.89 BUN/Creatinine Ratio 13.5 Random Glucose 95 Serum Osmolality 271.5 L Calcium 9.1 Total Bilirubin 0.2 AST 18 ALT 16 Alkaline Phosphatase 44 Serum Total Protein 7.2 Albumin 3.6 Globulin 3.6 H Albumin/Globulin Ratio 1.0 L Lipase 36 Urine Color Urine Appearance Urine pH Ur Specific [place] Urine Protein Urine Glucose (UA) Urine Ketones Urine Blood Urine Nitrite Urine Bilirubin Urine Urobilinogen Ur Leukocyte Esterase Urine RBC Urine WBC Ur Epithelial Cells Urine Bacteria Urine Mucus Urine HCG, Qual Negative Group A Strep Rapid 03/10/19 03/10/19 18:05 18:08 WBC RBC Hgb Hct MCV MCH MCHC RDW Plt Count MPV Absolute Neuts (auto) Absolute Lymphs (auto) Absolute Monos (auto) Absolute Eos (auto) Absolute Basos (auto) Neutrophils % Lymphocytes % Monocytes % Eosinophils % Basophils % Sodium Potassium Chloride Carbon Dioxide Anion Gap BUN Creatinine BUN/Creatinine Ratio Random Glucose Serum Osmolality Calcium Total Bilirubin AST ALT Alkaline Phosphatase Serum Total Protein Albumin Globulin Albumin/Globulin Ratio Lipase Urine Color Yellow Urine Appearance Clear Urine pH 6.0 Ur Specific [place] >= 1.030 Urine Protein 30 Urine Glucose (UA) Negative Urine Ketones Negative Urine Blood Small H Urine Nitrite Negative Urine Bilirubin Negative Urine Urobilinogen 0.2 Ur Leukocyte Esterase Negative Urine RBC 5-10 H Urine WBC 1-3 Ur Epithelial Cells 5-10 Urine Bacteria 4+ H Urine Mucus Moderate Urine HCG, Qual Group A Strep Rapid Negative CXR unremarkable. Patient's headache almost resolved completely after Toradol 30 mg IV and Phenergan 25 mg IV x one. She likely has a developing URI vs. environmental allergies and suffered a migraine today. Care instructions given. E.R. warnings given. Questions were elicited and answered. Patient voiced understanding and agreement with the plan. Departure - Departure Clinical Impression: Migraine, Allergic rhinitis Disposition: Discharge to Home or Self Care Condition: Good Departure Forms: ED Discharge - Pt. Copy, Patient Portal Self Enrollment Diet: resume usual diet Activity: increase activity as tolerated Referrals: Inocente Damon MD [Primary Care Provider] - 1-2 Weeks Prescriptions: Ketorolac Tromethamine [Toradol Tabs] 10 mg PO Q6HRS PRN #10 tab PRN Reason: Headache Or Mild Pain Promethazine Tab [Phenergan Tablet] 25 mg PO .Q4H PRN #14 tab PRN Reason: Nausea/Vomiting Home Medications: Ambulatory Orders Divalproex Sodium [Depakote Tab] 500 mg PO BID MDD 1000 11/20/16 Escitalopram [Lexapro] 20 mg PO DAILY 11/20/16 Gabapentin [Neurontin] 800 mg PO TID 02/25/17 Albuterol Inhaler [Ventolin Hfa Inhaler] 2 puff INH Q4HR PRN #1 inh 02/23/18 Benzonatate Perles [Tessalon Perles] 100 mg PO TID PRN #15 cap 02/23/18 Ketorolac Tromethamine [Toradol Tabs] 10 mg PO Q6HRS PRN #10 tab 03/10/19 Promethazine Tab [Phenergan Tablet] 25 mg PO .Q4H PRN #14 tab 03/10/19 Additional Instructions: Take medications as prescribed for nausea and headache. Do not take the Toradol (Ketorolac) after two days from now. Follow up with your regular doctor for prophylactic migraine medications or referral to a neurologist.
--- NOTE | 2019-03-10 18:13 | RAD ---
EXAM:Chest,2 Views CLINICAL INDICATION: Cough COMPARISON: 02/24/2018 FINDINGS:Two views of the chest were obtained. The heart size is normal. The pulmonary vascularity is unremarkable. The lungs are clear. There is no consolidation, infiltrate, pleural effusion, or pneumothorax. IMPRESSION: No evidence of active pulmonary disease. Electronically signed by: Dillon Bacon MD 03/10/2019 6:11 PM CDT
[2019-03-10 19:13] VITALS: BP 104/65; O2SAT 99
== END 2019-03-10 19:15 | disposition home or self-care (01) ==
LOC: ER 17:10
DX: G43.909 Migraine, unspecified, not intractable, without status migrainosus (principal); J30.9 Allergic rhinitis, unspecified; K21.9 Gastro-esophageal reflux disease without esophagitis; J45.909 Unspecified asthma, uncomplicated; R56.9 Unspecified convulsions; F17.210 Nicotine dependence, cigarettes, uncomplicated; Z79.899 Other long term (current) drug therapy; Z88.1 Allergy status to other antibiotic agents; Z88.0 Allergy status to penicillin; Z88.8 Allergy status to other drugs, medicaments and biological substances
CPT/HCPCS: 36415; 71046; 80053; 80307; 81001; 81025; 83690; 85025; 87070; 87502; 87880; A4216; J1885; J2550

== ENCOUNTER 2019-04-14 22:58 | Emergency (ER) | payer SELFPAY ==
[2019-04-14 23:15] VITALS: TEMP 98.6
--- NOTE | 2019-04-14 23:39 | ED.PDOC ---
History of Present Illness - General Chief Complaint: Asthma Stated Complaint: asthma attack 1HR ago,sore throat,headache,UTI sym Time Seen by Provider: 04/14/19 23:06 Source: patient Exam Limitations: no limitations - History of Present Illness Initial Comments: Patient presents with multiple complaints. She says that she has had intermittent N/V for about three months. She reports that this happens to her when she is "stressed". She says she has asthma that is induced by "heat". She reports having an asthma attack today that lasted about 45 minutes. She treats this prn with Symbicort and albuterol. She says that she has had dysuria for one day. She just became sexually active with someone recently and did not use condoms. She says she has had a BTL. She also reports that her left ear has been "bothering me". No recent URI symptoms. She reports a history of walking pneumonia. She has had some chills today but no known fever. Her sexual partner has not had any dysuria that she knows of. These seem to be the main complaints that the patient has today. She is a poor historian and has trouble answering the questions asked. However, at the end of my interview with her, she voiced satisfaction with her report. Timing/Duration: changing over time, intermittent Severity: mild Improving Factors: nothing Worsening Factors: nothing Associated Symptoms: other - as in HPI Allergies/Adverse Reactions: Allergies Amoxicillin [From Augmentin] Allergy (Severe, Verified 04/14/19 23:15) Clavulanic Acid [From Augmentin] Allergy (Severe, Verified 04/14/19 23:15) Penicillins Allergy (Verified 04/14/19 23:15) Pseudoephedrine [From Sudafed] Allergy (Verified 02/22/18 23:22) Quetiapine [From Seroquel] Allergy (Verified 02/22/18 23:22) Home Medications: Ambulatory Orders Divalproex Sodium [Depakote Tab] 500 mg PO BID MDD 1000 11/20/16 Escitalopram [Lexapro] 20 mg PO DAILY 11/20/16 Gabapentin [Neurontin] 800 mg PO TID 02/25/17 Albuterol Inhaler [Ventolin Hfa Inhaler] 2 puff INH Q4HR PRN #1 inh 02/23/18 Review of Systems - Review of Systems Constitutional: States: see HPI EENTM: States: see HPI Respiratory: States: see HPI Cardiology: States: no symptoms reported Gastrointestinal/Abdominal: States: see HPI Genitourinary: States: see HPI Musculoskeletal: States: no symptoms reported Skin: States: no symptoms reported Neurological: States: no symptoms reported Endocrine: States: no symptoms reported Hematologic/Lymphatic: States: no symptoms reported Past Medical History (General) - Patient Medical History Hx Seizures: Yes Hx Stroke: No Hx Dementia: No Hx Asthma: Yes Hx of COPD: No Hx Cardiac Disorders: No Hx Congestive Heart Failure: No Hx Pacemaker: No Hx Hypertension: No Hx Thyroid Disease: No Hx Diabetes: No Hx Gastroesophageal Reflux: Yes Hx Renal Disease: No Hx Cancer: No Hx of HIV: No Hx Hepatitis C: No Hx MRSA: No Surgical History: other - Vaccination History Hx Tetanus, Diphtheria Vaccination: No Hx Influenza Vaccination: No Hx Pneumococcal Vaccination: No - Social History Hx Tobacco Use: Yes Hx Chewing Tobacco Use: No Hx Alcohol Use: Yes - occasional Hx Substance Use: No Hx Substance Use Treatment: No Hx Depression: No Hx Physical Abuse: No Hx Emotional Abuse: No Hx Suspected Abuse: No - Female History Hx Last Menstrual Period: 02/22/18 Patient : No Family Medical History - Family History Mother Family History: Unknown Physical Exam - Physical Exam General Appearance: Alert Eye Exam: bilateral normal Ears, Nose, Throat: normal ENT inspection Neck: non-tender, full range of motion, supple Respiratory: lungs clear, normal breath sounds Cardiovascular/Chest: normal peripheral pulses, regular rate, rhythm, no edema Gastrointestinal/Abdominal: normal bowel sounds, non tender, soft Back Exam: normal inspection, no CVA tenderness Extremity: normal range of motion, non-tender 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, no motor/sensory deficits, alert, normal mood/affect, oriented x 3 Skin Exam: normal color Lymphatic: no adenopathy Progress - Progress Progress: 04/15/19 00:43 Laboratory Tests 04/14/19 04/14/19 04/14/19 23:29 23:31 23:31 WBC RBC Hgb Hct MCV MCH MCHC RDW Plt Count MPV Absolute Neuts (auto) Absolute Lymphs (auto) Absolute Monos (auto) Absolute Eos (auto) Absolute Basos (auto) Neutrophils % Lymphocytes % Monocytes % Eosinophils % Basophils % Sodium 135 Potassium 3.2 L Chloride 101 Carbon Dioxide 24 Anion Gap 13.2 BUN 11 Creatinine 0.94 BUN/Creatinine Ratio 11.7 Random Glucose 93 Serum Osmolality 269.2 L Calcium 9.2 Total Bilirubin 0.3 AST 22 ALT 22 Alkaline Phosphatase 50 Serum Total Protein 7.5 Albumin 3.7 Globulin 3.8 H Albumin/Globulin Ratio 1.0 L Lipase TSH Thyroxine (T4) Urine Color Yellow Urine Appearance Sl cloudy Urine pH 6.0 Ur Specific [place] >= 1.030 Urine Protein 30 Urine Glucose (UA) Negative Urine Ketones Negative Urine Blood Negative Urine Nitrite Negative Urine Bilirubin Small H Urine Urobilinogen 0.2 Ur Leukocyte Esterase Negative Urine RBC 1-3 Urine WBC 0-1 Ur Epithelial Cells 40-50 Urine Bacteria 1+ Urine Mucus Large Urine HCG, Qual Negative Urine Opiates Screen Urine Barbiturates Ur Phencyclidine Scrn U Amphetamin/Meth Scrn U Benzodiazepines Scrn U Cocaine Metab Screen U Cannabinoids Screen Group A Strep Rapid 04/14/19 04/14/19 04/14/19 23:32 23:32 23:32 WBC 7.6 RBC 4.15 L Hgb 12.5 Hct 36.9 MCV 89.0 MCH 30.2 MCHC 33.9 RDW 12.8 Plt Count 353 MPV 8.1 Absolute Neuts (auto) 4.40 Absolute Lymphs (auto) 2.10 Absolute Monos (auto) 0.80 Absolute Eos (auto) 0.30 Absolute Basos (auto) 0.10 Neutrophils % 58.3 Lymphocytes % 27.1 Monocytes % 10.3 H Eosinophils % 3.4 Basophils % 0.9 Sodium Potassium Chloride Carbon Dioxide Anion Gap BUN Creatinine BUN/Creatinine Ratio Random Glucose Serum Osmolality Calcium Total Bilirubin AST ALT Alkaline Phosphatase Serum Total Protein Albumin Globulin Albumin/Globulin Ratio Lipase 41 TSH Thyroxine (T4) Urine Color Urine Appearance Urine pH Ur Specific [place] Urine Protein Urine Glucose (UA) Urine Ketones Urine Blood Urine Nitrite Urine Bilirubin Urine Urobilinogen Ur Leukocyte Esterase Urine RBC Urine WBC Ur Epithelial Cells Urine Bacteria Urine Mucus Urine HCG, Qual Urine Opiates Screen Negative Urine Barbiturates Negative Ur Phencyclidine Scrn Negative U Amphetamin/Meth Scrn Negative U Benzodiazepines Scrn Negative U Cocaine Metab Screen Negative U Cannabinoids Screen Positive H Group A Strep Rapid 04/14/19 04/14/19 23:33 23:42 WBC RBC Hgb Hct MCV MCH MCHC RDW Plt Count MPV Absolute Neuts (auto) Absolute Lymphs (auto) Absolute Monos (auto) Absolute Eos (auto) Absolute Basos (auto) Neutrophils % Lymphocytes % Monocytes % Eosinophils % Basophils % Sodium Potassium Chloride Carbon Dioxide Anion Gap BUN Creatinine BUN/Creatinine Ratio Random Glucose Serum Osmolality Calcium Total Bilirubin AST ALT Alkaline Phosphatase Serum Total Protein Albumin Globulin Albumin/Globulin Ratio Lipase TSH 2.76 Thyroxine (T4) 12.81 H Urine Color Urine Appearance Urine pH Ur Specific [place] Urine Protein Urine Glucose (UA) Urine Ketones Urine Blood Urine Nitrite Urine Bilirubin Urine Urobilinogen Ur Leukocyte Esterase Urine RBC Urine WBC Ur Epithelial Cells Urine Bacteria Urine Mucus Urine HCG, Qual Urine Opiates Screen Urine Barbiturates Ur Phencyclidine Scrn U Amphetamin/Meth Scrn U Benzodiazepines Scrn U Cocaine Metab Screen U Cannabinoids Screen Group A Strep Rapid Negative Potassium 3.2. Patient is at high risk for gonorrhea and chlamydia and is at risk for poor follow up. She was treated empirically with Rocephin 250 mg IM x one and Azithromycin 1000 mg po x one. Potassium chloride 40 meq po x one as well. She had serous otitis media on the left and given solumedrol 60 mg IV x one for therapeutic advantage to treat a possible asthma recurrence as well as eustachian tube inflammation. Care instructions given. E.R. warnings given. Questions were elicited and answered. Patient voiced understanding and agreement with the plan. Departure - Departure Clinical Impression: Serous otitis media, Asthma, High risk sexual behavior Disposition: Discharge to Home or Self Care Condition: Good Departure Forms: ED Discharge - Pt. Copy, Patient Portal Self Enrollment Instructions: DI for Asthma -- Adult, Chlamydia and Gonorrhea Diet: resume usual diet Activity: increase activity as tolerated Referrals: Inocente Damon MD [Primary Care Provider] - 1-2 Weeks Home Medications: Ambulatory Orders Divalproex Sodium [Depakote Tab] 500 mg PO BID MDD 1000 11/20/16 Escitalopram [Lexapro] 20 mg PO DAILY 11/20/16 Gabapentin [Neurontin] 800 mg PO TID 02/25/17 Albuterol Inhaler [Ventolin Hfa Inhaler] 2 puff INH Q4HR PRN #1 inh 02/23/18 Additional Instructions: Call the laboratory in 3-4 days for the gonorrhea and chlamydia results. Refrain from sexual activity until you find out the results. If either are positive, refrain from sexual activity for at least 7 days after treatment or 7 days after the painful urination resolves, whichever is later. Have your partner seek treatment before engaging in sexual activity with them. If either of your tests are positive, contact any sexual contacts from the past 60 days to notify them of their risk. Consider HIV testing since you are at higher risk for this disease. See your regular doctor in the next month to have your potassium rechecked and your nausea and vomiting addressed. Return to the E.R. for worsening symptoms.
[2019-04-14] MEDS ORDERED: AZITHROMYCIN 250 MG TAB PO ONE (23:52)
[2019-04-15] MEDS ORDERED: POTASSIUM CHLORIDE 20 MEQ TAB PO ONE (00:01)
[2019-04-15] MEDS ORDERED: LIDOCAINE 1% 2 ML VIAL INJ ONE (00:02)
--- NOTE | 2019-04-15 00:11 | RAD ---
EXAM: XR Chest, 2 Views CLINICAL HISTORY: The patient is 28 years old and is Female; cough, asthma attack TECHNIQUE: Frontal and lateral views of the chest. COMPARISON: Chest radiograph March 10, 2019. FINDINGS: LUNGS: Unremarkable. No consolidation. PLEURAL SPACE: Unremarkable. No pneumothorax. HEART: Unremarkable. No cardiomegaly. MEDIASTINUM: Unremarkable. BONES/JOINTS: Unremarkable. IMPRESSION: No acute cardiopulmonary process. Electronically signed by: Verito Perez MD 04/15/2019 12:09 AM CDT
[2019-04-15 00:33] VITALS: O2SAT 99
[2019-04-15] MEDS ORDERED: methylPREDNISolone SODIUM SUC 125 MG/2 ML VIAL IV ONE (00:42)
[2019-04-15] MEDS ORDERED: ACETAMINOPHEN 325 MG TAB PO ONE (00:42)
[2019-04-15 01:15] VITALS: BP 101/62
== END 2019-04-15 01:16 | disposition home or self-care (01) ==
LOC: ER 22:58
DX: J45.909 Unspecified asthma, uncomplicated (principal); H65.92 Unspecified nonsuppurative otitis media, left ear; R30.0 Dysuria; R11.2 Nausea with vomiting, unspecified; K21.9 Gastro-esophageal reflux disease without esophagitis; R56.9 Unspecified convulsions; Z72.51 High risk heterosexual behavior; Z87.891 Personal history of nicotine dependence; Z88.8 Allergy status to other drugs, medicaments and biological substances; Z88.0 Allergy status to penicillin; Z87.01 Personal history of pneumonia (recurrent); Z79.899 Other long term (current) drug therapy
CPT/HCPCS: 36415; 71046; 80053; 80307; 81001; 81025; 83690; 84436; 84443; 85025; 87070; 87491; 87591; 87880; J0696; J2930; Q0144

== ENCOUNTER 2019-09-12 12:47 | Emergency (ER) | payer SELFPAY ==
[2019-09-12] MEDS ORDERED: predniSONE 20 MG TAB PO ONE (13:06)
[2019-09-12] MEDS ORDERED: IBUPROFEN 200 MG TAB PO ONE (13:06)
--- NOTE | 2019-09-12 14:13 | ED.PDOC ---
History of Present Illness - General Chief Complaint: General Stated Complaint: cough and congestion Time Seen by Provider: 09/12/19 13:00 Source: patient Exam Limitations: no limitations - History of Present Illness Initial Comments: pt reports 1 week of cough and sob . does have asthma poorly controlled. scattered wheezes and ronchi. moderate fever at home. no acute distress. Timing/Duration: 1 week Severity: moderate Improving Factors: nothing Worsening Factors: nothing Associated Symptoms: cough, fever/chills, loss of appetite, malaise, shortness of breath Allergies/Adverse Reactions: Allergies Amoxicillin [From Augmentin] Allergy (Severe, Verified 09/12/19 13:02) Clavulanic Acid [From Augmentin] Allergy (Severe, Verified 09/12/19 13:02) Penicillins Allergy (Verified 09/12/19 13:02) Pseudoephedrine [From Sudafed] Allergy (Verified 09/12/19 13:02) Quetiapine [From Seroquel] Allergy (Verified 09/12/19 13:02) Home Medications: Ambulatory Orders Divalproex Sodium [Depakote Tab] 500 mg PO BID MDD 1000 11/20/16 Escitalopram [Lexapro] 20 mg PO DAILY 11/20/16 Gabapentin [Neurontin] 800 mg PO TID 02/25/17 Albuterol Inhaler [Ventolin Hfa Inhaler] 2 puff INH Q4HR PRN #1 inh 02/23/18 Albuterol Inhaler [Ventolin Hfa Inhaler] 2 puff INH Q4H PRN #1 inh 09/12/19 Oseltamivir Capsule [Tamiflu] 75 mg PO BID 5 Days #10 capsule 09/12/19 predniSONE [Prednisone] 20 mg PO DAILY #5 tab 09/12/19 Review of Systems - Review of Systems Constitutional: States: fever, malaise EENTM: States: nose congestion, throat pain Respiratory: States: cough, short of breath Cardiology: States: no symptoms reported Gastrointestinal/Abdominal: States: no symptoms reported Genitourinary: States: no symptoms reported Musculoskeletal: States: no symptoms reported Skin: States: no symptoms reported Neurological: States: headache Endocrine: States: no symptoms reported All other Systems: No Change from Baseline Past Medical History (General) - Patient Medical History Hx Seizures: Yes Hx Stroke: No Hx Dementia: No Hx Asthma: Yes Hx of COPD: No Hx Cardiac Disorders: No Hx Congestive Heart Failure: No Hx Pacemaker: No Hx Hypertension: No Hx Thyroid Disease: No Hx Diabetes: No Hx Gastroesophageal Reflux: Yes Hx Renal Disease: No Hx Cancer: No Hx of HIV: No Hx Hepatitis C: No Hx MRSA: No - Vaccination History Hx Tetanus, Diphtheria Vaccination: No Hx Influenza Vaccination: No Hx Pneumococcal Vaccination: No - Social History Hx Tobacco Use: Yes Hx Chewing Tobacco Use: No Hx Alcohol Use: Yes - occasional Hx Substance Use: No Hx Substance Use Treatment: No Hx Depression: No Hx Physical Abuse: No Hx Emotional Abuse: No Hx Suspected Abuse: No - Female History Patient is a Female of Child Bearing Age (10 -59 yrs old): Yes Hx Last Menstrual Period: 02/22/18 Patient : No Family Medical History - Family History Mother Family History: Unknown Physical Exam - Physical Exam General Appearance: Alert, No apparent distress Eye Exam: bilateral normal Ears, Nose, Throat: hearing grossly normal, nasal congestion, pharyngeal erythema Neck: full range of motion, supple Respiratory: no respiratory distress, no accessory muscle use, rhonchi, wheezing Cardiovascular/Chest: normal peripheral pulses, regular rate, rhythm, no edema Peripheral Pulses: radial,right: 2+, radial,left: 2+ Gastrointestinal/Abdominal: non tender, soft Rectal Exam: deferred Back Exam: no CVA tenderness, no vertebral tenderness Extremity: non-tender, normal inspection, no pedal edema, normal capillary refill 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 she has flu B. will be written for tamiflu, proventil and low dose prednisone. keep well hydrated and motrin as needed for symptoms. er warnings. fu with pcp next week [facility] [phone] - EKG/XRAY/CT CT Ordered: No CT Interpretation Call Back: No Departure - Departure Clinical Impression: Influenza B Asthma exacerbation Qualifiers: Asthma severity: moderate Asthma persistence: persistent Qualified Code(s): J45.41 - Moderate persistent asthma with (acute) exacerbation Disposition: Discharge to Home or Self Care Condition: Good Departure Forms: ED Discharge - Pt. Copy, Patient Portal Self Enrollment Instructions: Asthma in Adults, Flu Diet: regular diet Activity: increase activity as tolerated Referrals: Inocente Damon MD [Primary Care Provider] - 1-2 Weeks Prescriptions: Albuterol Inhaler [Ventolin Hfa Inhaler] 2 puff INH Q4H PRN #1 inh PRN Reason: Shortness Of Breath Oseltamivir Capsule [Tamiflu] 75 mg PO BID 5 Days #10 capsule predniSONE [Prednisone] 20 mg PO DAILY #5 tab Home Medications: Ambulatory Orders Divalproex Sodium [Depakote Tab] 500 mg PO BID MDD 1000 11/20/16 Escitalopram [Lexapro] 20 mg PO DAILY 11/20/16 Gabapentin [Neurontin] 800 mg PO TID 02/25/17 Albuterol Inhaler [Ventolin Hfa Inhaler] 2 puff INH Q4HR PRN #1 inh 02/23/18 Albuterol Inhaler [Ventolin Hfa Inhaler] 2 puff INH Q4H PRN #1 inh 09/12/19 Oseltamivir Capsule [Tamiflu] 75 mg PO BID 5 Days #10 capsule 09/12/19 predniSONE [Prednisone] 20 mg PO DAILY #5 tab 09/12/19 Additional Instructions: pt here with symptoms of viral uri and asthma exac for the last 5 days. she has flu B. will be written for tamiflu, proventil and low dose prednisone. keep well hydrated and motrin as needed for symptoms. er warnings. fu with pcp next week
[2019-09-12 14:48] VITALS: BP 114/67; TEMP 98.7; O2SAT 96
== END 2019-09-12 14:40 | disposition home or self-care (01) ==
LOC: ER 12:47
DX: J10.1 Influenza due to other identified influenza virus with other respiratory manifestations (principal); J45.41 Moderate persistent asthma with (acute) exacerbation; R56.9 Unspecified convulsions; K21.9 Gastro-esophageal reflux disease without esophagitis; Z87.891 Personal history of nicotine dependence; Z79.899 Other long term (current) drug therapy; Z88.1 Allergy status to other antibiotic agents; Z88.0 Allergy status to penicillin; Z88.8 Allergy status to other drugs, medicaments and biological substances
CPT/HCPCS: 87502; J7512

== ENCOUNTER 2020-04-11 12:25 | Emergency (ER) | payer SELFPAY ==
[2020-04-11] MEDS: ONDANSETRON ODT 8 MG TAB SL ONE (13:38)
[2020-04-11] MEDS: HYDROcodone 5MG/APAP 325MG 1 EA TAB PO ONE (13:39)
[2020-04-11] MEDS: SULFA/TRIMETH 800/160 (DS) TAB 1 EA TAB PO ONE (13:39)
--- NOTE | 2020-04-11 13:59 | ED.PDOC ---
History of Present Illness - General Chief Complaint: Problem Stated Complaint: Low back/abd pain, N/D and urinary freq/burn/hest Time Seen by Provider: 04/11/20 12:41 Source: patient, RN notes reviewed, Vital Signs reviewed Exam Limitations: no limitations - History of Present Illness Initial Comments: This is a 29-year-old female with history of bipolar disorder and remote history of single prior UTI presenting to the emergency department for bilateral flank and lower abdominal pain onset yesterday. She reports some subjective fever, chills, body aches, as well as nausea/vomiting/diarrhea. She denies any recent antibiotic use. She has not taken her temperature with a thermometer. She does report increased urinary frequency, dysuria, urgency. No vaginal discharge. Allergies/Adverse Reactions: Allergies Amoxicillin [From Augmentin] Allergy (Severe, Verified 04/11/20 13:10) Clavulanic Acid [From Augmentin] Allergy (Severe, Verified 04/11/20 13:10) Penicillins Allergy (Verified 04/11/20 13:10) Pseudoephedrine [From Sudafed] Allergy (Verified 04/11/20 13:10) Quetiapine [From Seroquel] Allergy (Verified 04/11/20 13:10) Home Medications: Ambulatory Orders Divalproex Sodium [Depakote Tab] 500 mg PO BID MDD 1000 11/20/16 Escitalopram [Lexapro] 20 mg PO DAILY 11/20/16 Gabapentin [Neurontin] 800 mg PO TID 02/25/17 Albuterol Inhaler [Ventolin Hfa Inhaler] 2 puff INH Q4HR PRN #1 inh 02/23/18 Albuterol Inhaler [Ventolin Hfa Inhaler] 2 puff INH Q4H PRN #1 inh 09/12/19 Oseltamivir Capsule [Tamiflu] 75 mg PO BID 5 Days #10 capsule 09/12/19 predniSONE [Prednisone] 20 mg PO DAILY #5 tab 09/12/19 Acetamin W/Cod #3 Tab [Tylenol w/CODEINE #3] 1 - 2 ea PO Q6H PRN #20 tab 04/11/20 Ondansetron Odt [Zofran ODT] 4 - 8 mg PO Q6H PRN #15 tab 04/11/20 Sulfamethoxazole-Trimethoprim [Bactrim Ds 800-160 mg] 1 tab PO BID #20 tab 04/11/20 Review of Systems - Review of Systems Constitutional: States: chills, fever EENTM: Denies: ear pain, nose congestion, throat pain Respiratory: Denies: cough, short of breath, wheezing Cardiology: Denies: chest pain, edema Gastrointestinal/Abdominal: States: abdominal pain, diarrhea, nausea, vomiting Genitourinary: States: dysuria, frequency, pain. Denies: discharge Musculoskeletal: States: back pain. Denies: joint pain, muscle stiffness, neck pain Skin: Denies: lesions, rash Neurological: Denies: headache, paresthesia Endocrine: States: no symptoms reported Hematologic/Lymphatic: States: no symptoms reported Past Medical History (General) - Patient Medical History Hx Seizures: Yes Hx Stroke: No Hx Dementia: No Hx Asthma: Yes Hx of COPD: No Hx Cardiac Disorders: No Hx Congestive Heart Failure: No Hx Pacemaker: No Hx Hypertension: No Hx Thyroid Disease: No Hx Diabetes: No Hx Gastroesophageal Reflux: Yes Hx Renal Disease: No Hx Cancer: No Hx of HIV: No Hx Hepatitis C: No Hx MRSA: No Surgical History: other - Vaccination History Hx Tetanus, Diphtheria Vaccination: No Hx Influenza Vaccination: No Hx Pneumococcal Vaccination: No - Social History Hx Tobacco Use: Yes Hx Chewing Tobacco Use: No Hx Alcohol Use: Yes Hx Substance Use: No Hx Substance Use Treatment: No Hx Depression: Yes Hx Physical Abuse: No Hx Emotional Abuse: No Hx Suspected Abuse: No - Female History Patient is a Female of Child Bearing Age (10 -59 yrs old): Yes Hx Last Menstrual Period: 04/01/20 Patient : No - Denies Family Medical History - Family History Mother Family History: Unknown Physical Exam - Physical Exam General Appearance: Alert, No apparent distress Ears, Nose, Throat: normal ENT inspection, normal pharynx Neck: non-tender, full range of motion Respiratory: chest non-tender, lungs clear, normal breath sounds, no respiratory distress Cardiovascular/Chest: normal peripheral pulses, regular rate, rhythm, no edema, no gallop, no JVD, no murmur Gastrointestinal/Abdominal: soft, tenderness - Suprapubic, bilateral CVA Back Exam: normal inspection, no vertebral tenderness, CVA tenderness (R), CVA tenderness (L) Extremity: normal range of motion, non-tender Neurologic: alert, oriented x 3 Skin Exam: normal color, warm/dry Progress - Progress Progress: 04/11/20 13:49 Rechecked. Discussed UA results. Feeling better after p.o. medications. Tolerating p.o. fluids. Discussed plan for discharge home with Bactrim, pain control, antiemetics. Discussed pending urine culture. Strict warnings given to return the emergency room for worsening pain, intractable vomiting, changes mental status, fevers, or any other concerns. DDX: UTI, pyelonephritis, musculoskeletal back pain, gastroenteritis MDM: Patient presenting with bilateral flank and suprapubic pain with associated dysuria, frequency, urgency, as well as nausea/vomiting/diarrhea. No known COVID contacts. No cough, fever, shortness of breath, hypoxia. Very low suspicion for COVID. Vital signs are normal in the emergency department. UA showed trace ketones, no evidence of significant dehydration. She is feeling better after p.o. medications. No indication for labs/IV fluids at this time. Patient is stable for discharge home. Strict ER warnings given to return for worsening. DO Dario Finch #[id number] - Results/Orders Results/Orders: 04/11/20 12:42 URINE CULTURE W/COLONY COUNT Stat 04/11/20 13:33 Urine Culture Stat Laboratory Results - last 24 hr 04/11/20 04/11/20 12:42 12:42 Urine Color Yellow Urine Appearance Cloudy Urine pH 5.5 Ur Specific [place] 1.020 Urine Protein >=300 H Urine Glucose (UA) Negative Urine Ketones Trace Urine Blood Large H Urine Nitrite Positive H Urine Bilirubin Negative Urine Urobilinogen 0.2 Ur Leukocyte Esterase Moderate H Urine RBC 40-50 H Urine WBC Tntc H Ur Epithelial Cells 10-20 Urine Bacteria 3+ H Urine Mucus Small Urine HCG, Qual Negative Departure - Departure Clinical Impression: Flank pain, acute, Acute pyelonephritis, Nausea vomiting and diarrhea Disposition: Discharge to Home or Self Care Condition: Good Departure Forms: ED Discharge - Pt. Copy, Patient Portal Self Enrollment, Work Release Form Instructions: DI for Kidney Infection Referrals: Inocente Damon MD [Primary Care Provider] - 1-5 Days Prescriptions: Acetamin W/Cod #3 Tab [Tylenol w/CODEINE #3] 1 - 2 ea PO Q6H PRN #20 tab PRN Reason: Moderate To Severe Pain Ondansetron Odt [Zofran ODT] 4 - 8 mg PO Q6H PRN #15 tab PRN Reason: Nausea Sulfamethoxazole-Trimethoprim [Bactrim Ds 800-160 mg] 1 tab PO BID #20 tab Home Medications: Ambulatory Orders Divalproex Sodium [Depakote Tab] 500 mg PO BID MDD 1000 11/20/16 Escitalopram [Lexapro] 20 mg PO DAILY 11/20/16 Gabapentin [Neurontin] 800 mg PO TID 02/25/17 Albuterol Inhaler [Ventolin Hfa Inhaler] 2 puff INH Q4HR PRN #1 inh 02/23/18 Albuterol Inhaler [Ventolin Hfa Inhaler] 2 puff INH Q4H PRN #1 inh 09/12/19 Oseltamivir Capsule [Tamiflu] 75 mg PO BID 5 Days #10 capsule 09/12/19 predniSONE [Prednisone] 20 mg PO DAILY #5 tab 09/12/19 Acetamin W/Cod #3 Tab [Tylenol w/CODEINE #3] 1 - 2 ea PO Q6H PRN #20 tab 04/11/20 Ondansetron Odt [Zofran ODT] 4 - 8 mg PO Q6H PRN #15 tab 04/11/20 Sulfamethoxazole-Trimethoprim [Bactrim Ds 800-160 mg] 1 tab PO BID #20 tab 04/11/20 Additional Instructions: Return to the emergency room for worsening pain, fever, inability to tolerate oral medications, or any other concerns
[2020-04-11 15:53] VITALS: BP 119/70; TEMP 97.2; O2SAT 97
== END 2020-04-11 14:30 | disposition home or self-care (01) ==
LOC: ER 12:25
DX: N10 Acute pyelonephritis (principal); R10.9 Unspecified abdominal pain; R56.9 Unspecified convulsions; R11.2 Nausea with vomiting, unspecified; R19.7 Diarrhea, unspecified; F17.200 Nicotine dependence, unspecified, uncomplicated; Z79.899 Other long term (current) drug therapy